=== PATIENT | female | born 1955 | race Caucasian/White ===

== ENCOUNTER 2019-02-10 12:56 | Emergency (ER) | payer OTHER ==
[2019-02-10 13:59] LABS: ADD MAN DIFF? NO
[2019-02-10] MEDS: ONDANSETRON 4 MG INJ IV (14:02)
[2019-02-10] MEDS: NICARDipine HCL 30 MG CAPSULE PO (14:02)
[2019-02-10] MEDS: morphine 2 MG INJ IV (14:02)
[2019-02-10 14:27] LABS: BASOPHILS % 0.3 % (0.0-2.0); EOSINOPHILS # 0.2 10^3/ul (0.0-0.5); EOSINOPHILS % 1.8 % (0.0-7.0); HEMATOCRIT 37.4 % (37.0-47.0); HEMOGLOBIN 13.3 g/dl (12.0-16.0); LYMPHOCYTES # 2.7 10^3/ul (0.8-2.9); LYMPHOCYTES % 20.5 % (15.0-51.0); MEAN CORPUSCULAR HEMOGLOBIN 27.9 pg (29.0-33.0); MEAN CORPUSCULAR HGB CONC 35.6 g/dl (32.0-37.0); MEAN CORPUSCULAR VOLUME 78.4 fl (82.0-101.0); MONOCYTE # 0.7 10^3/ul (0.3-0.9); MONOCYTES % 5.1 % (0.0-11.0); NEUTROPHIL # 9.5 10^3/ul (1.6-7.5); NEUTROPHILS % 71.9 % (39.0-77.0); RED BLOOD COUNT 4.77 10^6/ul (4.20-5.40); RED CELL DISTRIBUTION WIDTH 12.6 % (11.5-14.5)
[2019-02-10 14:27] LABS: WHITE BLOOD COUNT 13.3 10^3/ul (4.8-10.8)
[2019-02-10 14:29] LABS: MEAN PLATELET VOLUME 12.5 fl (7.4-10.4); PLATELET COUNT 170 10^3/UL (140-415); POSITIVE DIFF @See below
[2019-02-10 14:32] LABS: ALBUMIN 3.8 g/dl (3.3-4.9); ALBUMIN/GLOBULIN RATIO 0.92; ALKALINE PHOSPHATASE 150 IU/L (42-121); AMYLASE 89 U/L (11-123); ANION GAP 10 (5-13); ASPARTATE AMINO TRANSFERASE 68 IU/L (15-46); BILIRUBIN,INDIRECT 0.5 mg/dl (0-1.1); BILIRUBIN,TOTAL 0.5 mg/dl (0.2-1.3); BLOOD UREA NITROGEN 28 mg/dl (7-20); CALCIUM 8.6 mg/dl (8.4-10.2); CARBON DIOXIDE 25 mmol/L (21-31); CHLORIDE 96 mmol/L (97-110); CREATININE 1.07 mg/dl (0.44-1.00); Estimated GFR 52 mL/min (>60); LIPASE 85 U/L (23-300); SODIUM 131 mmol/L (135-144); TOTAL PROTEIN 7.9 g/dl (6.1-8.1)
[2019-02-10 14:37] LABS: INR 0.86; PROTIME 11.8 Sec (11.9-14.9); PT RATIO 0.9
[2019-02-10 14:39] LABS: ALANINE AMINOTRANSFERASE < 6 IU/L (13-69)
[2019-02-10 14:43] LABS: TROPONIN-I < 0.012 ng/ml (0.000-0.120)
[2019-02-10 14:45] LABS: GLUCOSE 408 mg/dl (70-220)
[2019-02-10 14:46] LABS: POTASSIUM 5.5 mmol/L (3.5-5.1)
[2019-02-10] MEDS ORDERED: DEXTROSE 50% 50 ML SYRINGE IV ×2 (17:00)
[2019-02-10] MEDS ORDERED: GLUCOSE GEL 15 GRAM TUBE BUCCAL (17:00)
[2019-02-10] MEDS ORDERED: GLUCAGON 1 MG INJ IM (17:00)
[2019-02-10] MEDS ORDERED: GLUCOSE GEL 15 GRAM TUBE PO ×2 (17:00)
[2019-02-10] MEDS: INSULIN LISPRO 100 UNIT/ML VIAL SC (17:14)
[2019-02-10] MEDS: SOD CHLORIDE 0.9% 1,000 ML IV (17:27)
[2019-02-10 19:00] LABS: ALANINE AMINOTRANSFERASE 20 IU/L (13-69); ALBUMIN 3.7 g/dl (3.3-4.9); ALBUMIN/GLOBULIN RATIO 0.92; ALKALINE PHOSPHATASE 161 IU/L (42-121); ANION GAP 7 (5-13); ASPARTATE AMINO TRANSFERASE 23 IU/L (15-46); BILIRUBIN,INDIRECT 0.4 mg/dl (0-1.1); BILIRUBIN,TOTAL 0.4 mg/dl (0.2-1.3); BLOOD UREA NITROGEN 26 mg/dl (7-20); CALCIUM 8.7 mg/dl (8.4-10.2); CARBON DIOXIDE 30 mmol/L (21-31); CHLORIDE 100 mmol/L (97-110); Estimated GFR 56 mL/min (>60); GLUCOSE 250 mg/dl (70-220); POTASSIUM 4.2 mmol/L (3.5-5.1); SODIUM 137 mmol/L (135-144); TOTAL PROTEIN 7.7 g/dl (6.1-8.1)
== END 2019-02-10 19:11 | disposition home or self-care (01) ==
LOC: E/R 12:56
DX: S33.5XXA Sprain of ligaments of lumbar spine, initial encounter (principal); I10 Essential (primary) hypertension; I25.2 Old myocardial infarction; I16.0 Hypertensive urgency; E11.65 Type 2 diabetes mellitus with hyperglycemia; W01.0XXA Fall on same level from slipping, tripping and stumbling without subsequent striking against object, initial encounter; Y92.9 Unspecified place or not applicable; Z79.82 Long term (current) use of aspirin; Z79.4 Long term (current) use of insulin
CPT/HCPCS: 72220; 80053; 82150; 82962; 83690; 84484; 85025; 85610; 85730; 93005; 96374; 96375; 99285-25

== ENCOUNTER 2019-03-14 21:37 | Inpatient (IN) | payer OTHER ==
[2019-03-14 21:49] LABS: URINE BLOOD (Dip) POC 1+ (NEGATIVE); URINE KETONES (Dip) POC Negative (NEGATIVE); URINE LEUKOCYTE EST (Dip) POC Negative (NEGATIVE); URINE NITRITE (Dip) POC Negative (NEGATIVE); URINE TOTAL PROTEIN POC 3+ (NEGATIVE)
[2019-03-14 22:34] LABS: ADD MAN DIFF? NO
[2019-03-14 22:36] LABS: WHITE BLOOD COUNT 16.3 10^3/ul (4.8-10.8)
[2019-03-14 22:36] LABS: BASOPHILS % 0.2 % (0.0-2.0); EOSINOPHILS # 0.2 10^3/ul (0.0-0.5); EOSINOPHILS % 1.4 % (0.0-7.0); HEMOGLOBIN 12.4 g/dl (12.0-16.0); LYMPHOCYTES # 3.7 10^3/ul (0.8-2.9); LYMPHOCYTES % 22.9 % (15.0-51.0); MEAN CORPUSCULAR HEMOGLOBIN 26.9 pg (29.0-33.0); MEAN CORPUSCULAR HGB CONC 32.6 g/dl (32.0-37.0); MEAN CORPUSCULAR VOLUME 82.4 fl (82.0-101.0); MEAN PLATELET VOLUME 10.4 fl (7.4-10.4); MONOCYTE # 0.9 10^3/ul (0.3-0.9); MONOCYTES % 5.8 % (0.0-11.0); NEUTROPHIL # 11.2 10^3/ul (1.6-7.5); NEUTROPHILS % 69.1 % (39.0-77.0); PLATELET COUNT 344 10^3/UL (140-415); RED BLOOD COUNT 4.61 10^6/ul (4.20-5.40); RED CELL DISTRIBUTION WIDTH 13.6 % (11.5-14.5)
[2019-03-14 22:43] LABS: ALANINE AMINOTRANSFERASE 21 IU/L (13-69); ALBUMIN 3.9 g/dl (3.3-4.9); ALBUMIN/GLOBULIN RATIO 1.08; ALKALINE PHOSPHATASE 148 IU/L (42-121); ANION GAP 7 (5-13); ASPARTATE AMINO TRANSFERASE 50 IU/L (15-46); BILIRUBIN,INDIRECT 0.4 mg/dl (0-1.1); BILIRUBIN,TOTAL 0.4 mg/dl (0.2-1.3); BLOOD UREA NITROGEN 25 mg/dl (7-20); CALCIUM 9.6 mg/dl (8.4-10.2); CARBON DIOXIDE 28 mmol/L (21-31); CHLORIDE 106 mmol/L (97-110); CREATININE 0.89 mg/dl (0.44-1.00); Estimated GFR > 60 mL/min (>60); GLUCOSE 180 mg/dl (70-220); LIPASE 68 U/L (23-300); POTASSIUM 4.5 mmol/L (3.5-5.1); SODIUM 141 mmol/L (135-144); TOTAL PROTEIN 7.5 g/dl (6.1-8.1)
[2019-03-14 23:04] LABS: B-TYPE NATRIURETIC PEPTIDE 840 PG/ML (0-125)
[2019-03-14 23:09] LABS: TROPONIN-I 0.213 ng/ml (0.000-0.120)
[2019-03-15] MEDS: ASPIRIN 81 MG TAB PO (00:12)
[2019-03-15] MEDS: NITROGLYCERIN 2% 1 GM OINT PKT TD (00:12)
[2019-03-15] MEDS ORDERED: traMADol 50 MG TAB PO (02:30)
[2019-03-15] MEDS: PANTOPRAZOLE (EC) 40 MG TAB PO (05:09)
[2019-03-15 06:10] LABS: CREATINE KINASE 118 IU/L (23-200)
[2019-03-15 06:15] LABS: CK INDEX 2.7; CK-MB 3.16 ng/ml (0.0-2.4)
[2019-03-15 06:18] LABS: TROPONIN-I 0.458 ng/ml (0.000-0.120)
[2019-03-15 11:07] LABS: CREATINE KINASE 104 IU/L (23-200)
[2019-03-15 11:21] LABS: CK INDEX 2.5; CK-MB 2.62 ng/ml (0.0-2.4)
[2019-03-15] MEDS: CLOPIDOGREL 75 MG TAB PO (11:22)
[2019-03-15 11:23] LABS: TROPONIN-I 0.363 ng/ml (0.000-0.120)
[2019-03-15] MEDS: AMLODIPINE 10 MG TAB PO (11:23)
[2019-03-15] MEDS: ASPIRIN (EC) 81 MG TAB PO (11:23)
[2019-03-15] MEDS: FUROSEMIDE 40 MG TAB PO (11:23)
[2019-03-15] MEDS: METOPROLOL (XL) 25 MG TAB PO (11:24)
[2019-03-15] MEDS: GABAPENTIN 300 MG CAP PO ×2 (11:24→13:00)
[2019-03-15] MEDS: ENOXAPARIN 100 MG/ML SYG SC (12:02)
[2019-03-15] MEDS ORDERED: ATORVASTATIN 40 MG TAB PO (21:00)
== END 2019-03-15 13:32 | disposition short-term general hospital (02) | DRG 282 ==
LOC: TEL 23:25 → E/R 21:37 → TEL 03-15 09:04
DX: I21.4 Non-ST elevation (NSTEMI) myocardial infarction (principal); E11.9 Type 2 diabetes mellitus without complications; I25.10 Atherosclerotic heart disease of native coronary artery without angina pectoris; I10 Essential (primary) hypertension; E78.5 Hyperlipidemia, unspecified; I25.5 Ischemic cardiomyopathy; Z79.4 Long term (current) use of insulin; Z79.01 Long term (current) use of anticoagulants; Z79.02 Long term (current) use of antithrombotics/antiplatelets; Z95.5 Presence of coronary angioplasty implant and graft
CPT/HCPCS: 36415; 71045; 76705; 80053; 81003; 82550; 82553; 83690; 83880; 84484; 85025; 93005; 93306; 99217; 99285-25; G0378